=== PATIENT | female | born 1940 | race Caucasian/White ===

== ENCOUNTER 2018-09-25 15:17 | Outpatient (REF) | payer MEDICARE, SELFPAY ==
[2018-09-25 20:54] LABS: Abs Immature Grans 0.01 k/cumm (0.0-0.09); Absolute Basophil Count 0.03 k/cumm (0.0-0.2); Absolute Eosinophil Count 0.13 k/cumm (0.0-0.7); Absolute Lymphocyte Count 2.57 k/cumm (1.2-3.4); Absolute Monocyte Count 0.68 k/cumm (0.11-0.7); Absolute Neutrophil Count 3.54 k/cumm (1.2-6.7); Basophils % 0.4; Eosinophils % 1.9; HCT 43.7 % (36.0-46.0); Immature Grans % 0.1; Lymphocytes % 36.9; Mean Corp. HGB Concentration 34.3 g/dL (32.0-36.0); Mean Corpuscular Hemoglobin 33.6 pg (27.0-33.0); Mean Corpuscular Volume 97.8 fL (80-95); Mean Platelet Volume 13.1 fL (8.0-11.0); Monocytes % 9.8; Neutrophils % 50.9; Platelet Count 177 x1000/uL (130-400); RBC 4.47 m/cumm (4.00-5.20); RBC Distribution Width 12.9 % (11.7-14.6); White Blood Cell Count 6.96 k/cumm (4.4-10.8)
[2018-09-25 21:11] LABS: Iron 135 ug/dL (50-175); Total Iron Binding Capacity 249 ug/dL (250-450); Transferrin Sat 54 % (15-50)
[2018-09-25 21:22] LABS: BUN 14 mg/dL (7-18); CREATININE 0.84 mg/dL (0.55-1.02); Calcium 9.7 mg/dL (8.5-10.1); Calculated LDL 118 mg/dL; Chloride 105 mmol/L (98-107); Cholesterol 198 mg/dL (50-200); Ferritin 332 ng/mL (8-388); Glucose 96 mg/dL (70-100); HDL Cholesterol 40 mg/dL (40-60); Magnesium 2.2 mg/dL (1.8-2.4); Potassium 4.3 mmol/L (3.5-5.1); Sodium 141 mmol/L (136-145); TSH (W/Ref FT4) 1.07 uIU/mL (0.36-3.74); Triglyceride 201 mg/dL (30-150)
[2018-09-25 21:35] LABS: Hemoglobin A1C 5.4 % (4.5-6.2)
== END 2018-09-25 15:37 ==
LOC: NCHCN 15:17
PROVIDERS: PCP Internal Medicine; Visit Provider Nurse Practitioner Family
DX: I10 Essential (primary) hypertension (principal); G47.62 Sleep related leg cramps; M54.5 Low back pain; G89.29 Other chronic pain; E66.9 Obesity, unspecified; K21.9 Gastro-esophageal reflux disease without esophagitis; K30 Functional dyspepsia
CPT/HCPCS: 80048; 80061; 83721; 82728; 83036; 83540; 83550; 83735; 84443; 85025

== ENCOUNTER 2020-04-17 15:19 | Outpatient (REF) | payer MEDICARE, SELFPAY ==
[2020-04-17 13:50] LABS: Calculated LDL 100 mg/dL (<100); Cholesterol 160 mg/dL (<200); HDL Cholesterol 40 mg/dL (40-60); Triglyceride 103 mg/dL (<150)
== END 2020-04-17 15:20 | disposition home or self-care (01) ==
LOC: NCHCN 15:19
PROVIDERS: PCP Internal Medicine; Visit Provider Nurse Practitioner Family
DX: E66.9 Obesity, unspecified (principal)
CPT/HCPCS: 80061

== ENCOUNTER 2021-04-09 13:46 | Outpatient (REF) | payer MEDICARE, SELFPAY ==
[2021-04-09 22:16] LABS: Anion Gap 8.7 mmol/L (3-11); BUN 10 mg/dL (7-18); CO2 26.3 mmol/L (21.0-32.0); CREATININE 0.8 mg/dL (0.55-1.02); Calcium 9.1 mg/dL (8.5-10.1); Chloride 105 mmol/L (98-107); Glucose 91 mg/dL (74-106); Magnesium 2.1 mg/dL (1.8-2.4); Potassium 3.7 mmol/L (3.5-5.1); Sodium 140 mmol/L (136-145); Vitamin B12 581 pg/mL (193-986)
== END 2021-04-09 13:47 | disposition home or self-care (01) ==
LOC: NCHCN 13:46
PROVIDERS: PCP Internal Medicine; Visit Provider Nurse Practitioner Family
DX: I10 Essential (primary) hypertension (principal); K30 Functional dyspepsia; N39.46 Mixed incontinence; M54.59 Other low back pain; G89.29 Other chronic pain; E66.9 Obesity, unspecified
CPT/HCPCS: 80048; 82607; 83735

== ENCOUNTER 2021-09-26 11:50 | Outpatient (REF) | payer MEDICARE, SELFPAY ==
--- NOTE | 2021-09-26 10:45 | PAPNONF_PTH ---
PATIENT: Margarita Palomares LOC: [facility] U#:[id number] AGE/SX: 81/F ROOM: RE09/26/[address]: Jason Dunlap MD : 1940 BED: DIS: 09/26/2021 SPEC #: [id number] RECD: 09/26/21 18:18 STATUS: CEDRIC REQ #: [id number] TRI: 09/26/21 10:[address]: Jason Dunlap DEPT: [facility] Cytology RECD BY: Denia Mallory ENTERED: 09/26/21 18:19 SP TYPE: PAPNONF ANTONIO DR: Herber Womack Tissues: 1 - BODY FLUID CYTO-FINE NEEDLE [facility] Procedures: BODY FLUID CYTO-FINE [facility]LE [facility] Comments: [id number]
--- OUTSIDE RECORDS SUMMARY | 2021-09-26 11:56 | XMS_ITS | Clinical Summary ---
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
--- OUTSIDE RECORDS SUMMARY | 2021-09-26 11:57 | XMS_ITS | Encounter Summary ---
:1940 Author Organization [facility] Address [address] [place] [address] Care Team Providers Name Role Phone Unavailable Primary Care Provider Unavailable Encounter Details Date Type Department Care Team Description 09/20/2006 - Hospital Encounter [facility] Thelma Evans MD 09/24/2006 Emergency Department [address] [place] [address] Pavilion, [place] [id number] (Wo rk) Social History Tobacco Use Types Packs/Day Years Used Date Never Assessed Sex Assigned at Date Recorded Not on file documented as of this encounter Discharge Disposition Disposition Code Departure Means Destination Home or Self Care documented in this encounter Plan of Treatment Not on filedocumented as of this encounter Procedures Procedure Name Priority Date/Time Associated Comments Diagnosis COMPLETE BLOOD COUNT Routine 09/23/2006 7:45 Resu lts for this EDT procedure are i n the results section. BUN Routine 09/23/2006 7:45 Results for this EDT procedure are i n the results section. CREATININE Routine 09/23/2006 7:45 Results for this EDT procedure are i n the results section. ELECTROLYTES Routine 09/23/2006 7:45 Results for this EDT procedure are i n the results section. COMPLETE BLOOD COUNT Routine 09/22/2006 8:40 Resu lts for this EDT procedure are i n the results section. BUN Routine 09/22/2006 8:40 Results for this EDT procedure are i n the results section. CREATININE Routine 09/22/2006 8:40 Results for this EDT procedure are i n the results section. ELECTROLYTES Routine 09/22/2006 8:40 Results for this EDT procedure are i n the results section. COMPLETE BLOOD COUNT Routine 09/21/2006 7:20 Resu lts for this EDT procedure are i n the results section. BUN Routine 09/21/2006 7:20 Results for this EDT procedure are i n the results section. CREATININE Routine 09/21/2006 7:20 Results for this EDT procedure are i n the results section. ELECTROLYTES Routine 09/21/2006 7:20 Results for this EDT procedure are i n the results section. CT ABDOMEN, PELVIS W 09/20/2006 14:42 Res ults for this CONTRAST EDT procedure are i n the results section. COMPLETE BLOOD COUNT Routine 09/20/2006 13:55 Res ults for this AND DIFFERENTIAL EDT procedure a re in the results section. BUN Routine 09/20/2006 12:00 Results for this EDT procedure are i n the results section. LIPASE Routine 09/20/2006 12:00 Results for this EDT procedure are i n the results section. GLUCOSE, SERUM Routine 09/20/2006 12:00 Results f or this EDT procedure are i n the results section. CREATININE Routine 09/20/2006 12:00 Results for this EDT procedure are i n the results section. HEPATIC FUNCTION Routine 09/20/2006 12:00 Results for this PANEL (ALB,ALK EDT procedure are in PHOS,ALT,AST,DBIL,TOT the re sults NAHOMI,TOT PROT) section. ELECTROLYTES Routine 09/20/2006 12:00 Results for this EDT procedure are i n the results section. HOLD PURPLE TOP Routine 09/20/2006 11:00 Results for this EDT procedure are i n the results section. HOLD GREEN TOP Routine 09/20/2006 11:00 Results f or this EDT procedure are i n the results section. HOLD BLUE TOP Routine 09/20/2006 11:00 Results fo r this EDT procedure are i n the results section. BUN Routine 09/20/2006 11:00 Results for this EDT procedure are i n the results section. LIPASE Routine 09/20/2006 11:00 Results for this EDT procedure are i n the results section. GLUCOSE, SERUM Routine 09/20/2006 11:00 Results f or this EDT procedure are i n the results section. CREATININE Routine 09/20/2006 11:00 Results for this EDT procedure are i n the results section. HEPATIC FUNCTION Routine 09/20/2006 11:00 Results for this PANEL (ALB,ALK EDT procedure are in PHOS,ALT,AST,DBIL,TOT the re sults NAHOMI,TOT PROT) section. ELECTROLYTES Routine 09/20/2006 11:00 Results for this EDT procedure are i n the results section. documented in this encounter Results (ABNORMAL) ELECTROLYTES (09/23/2006 7:45 EDT) Pathologist Sig nature Sodium 135 (L) 136 - 145 mEq/L [facility] Potassium 3.4 (L) 3.5 - 5.0 mEq/L [facility] Chloride 108 96 - 110 mEq/L [facility] CO2 23 (L) 24 - 32 mEq/L [facility] Specimen Performing Organization Address [facility] Phon e Number [facility] [address] [place] [address] SERVICES [facility] [address] [place] [address] (ABNORMAL) CREATININE (09/23/2006 7:45 EDT) Pathologist Sig nature Creatinine 0.66 (L) 0.7 - 1.5 mg/dl [facility] GFR, Calculated >60 ml/min/1.73m2 [facility] Specimen Performing Organization Address [facility] Phon e Number [facility] [address] [place] [address] SERVICES [facility] [address] [place] [address] (ABNORMAL) HEMAGRAM (09/23/2006 7:45 EDT) Pathologist Sig nature WBC 8.71 4.0 - 12.4 K/cmm [facility] RBC 3.29 (L) 3.86 - 5.04 M/cmm [facility] Hemoglobin 11.4 (L) 11.6 - 15.2 gm/dl [facility] HCT 32.3 (L) 34.9 - 44.4 % [facility] MCV 98 81 - 98 fl [facility] MCH 34.8 (H) 26.7 - 33.3 pg [facility] MCHC 35.3 32.1 - 35.9 gm/dl [facility] PLT 193 141 - 320 K/cmm [facility] RDW-CV 13.0 11.7 - 14.6 % [facility] Specimen Performing Organization Address [facility]/ZIP Code Phon e Number [facility] [address] [place] [address] SERVICES [facility] [address] [place] [address] (ABNORMAL) BUN (09/23/2006 7:45 EDT) Pathologist Sig nature BUN 3 (L) 10 - 26 mg/dl [facility] Specimen Performing Organization Address [facility]/ZIP Code Phon e Number [facility] [address] [place] [address] SERVICES [facility] [address] [place] [address] (ABNORMAL) ELECTROLYTES (09/22/2006 8:40 EDT) Pathologist Sig nature Sodium 138 136 - 145 mEq/L [facility] Potassium 3.1 (L) 3.5 - 5.0 mEq/L [facility] Chloride 111 (H) 96 - 110 mEq/L [facility] CO2 24 24 - 32 mEq/L [facility] Specimen Performing Organization Address [facility] Phon e Number [facility] [address] [place] [address] SERVICES [facility] [address] [place] [address] (ABNORMAL) CREATININE (09/22/2006 8:40 EDT) Pathologist Sig nature Creatinine 0.60 (L) 0.7 - 1.5 mg/dl [facility] GFR, Calculated >60 ml/min/1.73m2 [facility] Specimen Performing Organization Address [facility]/ZIP Code Phon e Number [facility] [address] [place] [address] SERVICES [facility] [address] [place] [address] (ABNORMAL) HEMAGRAM (09/22/2006 8:40 EDT) Pathologist Sig nature WBC 18.16 (H) 4.0 - 12.4 K/cmm [facility] RBC 4.06 3.86 - 5.04 M/cmm [facility] Hemoglobin 11.9 11.6 - 15.2 gm/dl [facility] HCT 34.8 (L) 34.9 - 44.4 % [facility] MCV 86 81 - 98 fl [facility] MCH 29.4 26.7 - 33.3 pg [facility] MCHC 34.3 32.1 - 35.9 gm/dl [facility] PLT 210 141 - 320 K/cmm [facility] RDW-CV 13.5 11.7 - 14.6 % [facility] Specimen Performing Organization Address [facility]/ZIP Code Phon e Number [facility] [address] [place] [address] SERVICES [facility] [address] [place] [address] (ABNORMAL) BUN (09/22/2006 8:40 EDT) Pathologist Sig nature BUN 6 (L) 10 - 26 mg/dl [facility] Specimen Performing Organization Address [facility]/ZIP Code Phon e Number [facility] [address] [place] [address] SERVICES [facility] [address] [place] [address] (ABNORMAL) ELECTROLYTES (09/21/2006 7:20 EDT) Pathologist Sig nature Sodium 134 (L) 136 - 145 mEq/L [facility] Potassium 3.4 (L) 3.5 - 5.0 mEq/L [facility] Chloride 106 96 - 110 mEq/L [facility] CO2 23 (L) 24 - 32 mEq/L [facility] Specimen Performing Organization Address [facility]/ZIP Code Phon e Number [facility] [address] [place] [address] SERVICES [facility] [address] [place] [address] CREATININE (09/21/2006 7:20 EDT) Pathologist Sig nature Creatinine 0.70 0.7 - 1.5 mg/dl [facility] GFR, Calculated >60 ml/min/1.73m2 [facility] Specimen Performing Organization Address [facility]/ZIP Code Phon e Number [facility] [address] [place] [address] SERVICES [facility] [address] [place] [address] (ABNORMAL) HEMAGRAM (09/21/2006 7:20 EDT) Pathologist Sig nature WBC 15.31 (H) 4.0 - 12.4 K/cmm [facility] RBC 3.54 (L) 3.86 - 5.04 M/cmm [facility] Hemoglobin 12.0 11.6 - 15.2 gm/dl [facility] HCT 35.0 34.9 - 44.4 % [facility] MCV 99 (H) 81 - 98 fl [facility] MCH 34.0 (H) 26.7 - 33.3 pg [facility] MCHC 34.4 32.1 - 35.9 gm/dl [facility] PLT 179 141 - 320 K/cmm [facility] RDW-CV 13.4 11.7 - 14.6 % [facility] Specimen Performing Organization Address [facility] Phon e Number [facility] [address] [place] [address] SERVICES [facility] [address] [place] [address] BUN (09/21/2006 7:20 EDT) Pathologist Sig nature BUN 10 10 - 26 mg/dl [facility] Specimen Performing Organization Address [facility] Phon e Number [facility] [address] [place] [address] SERVICES [facility] [address] [place] [address] CT ABDOMEN, PELVIS W CONTRAST (09/20/2006 14:42 EDT) Anatomical Region Laterality Modality Other Specimen Narrative [facility] - 08/31/2008 13 :59 EDT LLQ pain, fever, w/ vomiting, dirrehea. Tender. ? Diverticulitis CT ABDOMEN, PELVIS: ??September 20, 2006, 2:4 2:00 PM Signs and Symptoms: ??LLQ pain, fever, w / vomiting, diarrhea. ??Tender. ? Diverticulitis Comparison: None Technique: Helical images were obtained from the do mes of the diaphragm to the iliac crests. Technique Pelvis: Immediately after the above preparation, axial images were obtained from the iliac crests to the ischial tub erosities. During the exam, ??intravenous administr ation of 100 cc of 370 mg% nonionic contrast at a rate of 2 cc/seco nd was administered. Prior to scanning, oral and rectal contrast was a dministered. Findings: There is extensive diverticulitis involv ing the distal descending colon with marked pericolic fat strandin g and extraluminal gas tracking from the posterior inflamed div erticula. There is no significant fluid collection associated with the phlegmon. There is no bowel dilatation. No pneumoperitoneum is noted. A small amount of ascites is also noted. ??Diverticulosis of the sigmoid is also noted. The appendix is normal. There is no smal l bowel obstruction. There is a 3 cm hypodense lesion in the posterior segment of the right hepatic lobe. Delayed images were obtained 1 minute later of the liver and demonstrate probable nodul ar peripheral enhancement. However, most of the lesion is not fille d in on the delayed images. There is no gas in this mass. Also prese nt are multiple hypodense lesions involving the spleen. The larges t measures 1.3 AP by 1.4 transverse (image 42) and is located in the medial aspect of the spleen. The pancreas, adrenal glands and left ki dney are unremarkable. A few subcentimeter hypodense lesions are seen in the right renal cortex, too small to characterize but likely cys ts. The aorta and IVC are unremarkable. Ther e is no pelvic mass. The ovaries are present and symmetrical. There is a left inguinal hernia containi ng fat. Degenerative disease of the lumbar spine is noted. Conclusion: Diverticulitis with associated phlegmon and microperforation. Indeterminate hepatic and splenic lesion s. The hepatic lesion is suggestive for a hemangioma. Dedicated h epatic CT or MRI may prove helpful to further characterize. Procedure Note Sadie Petersen MD - 08/31/2008 LLQ pain, fever, w/ vomiting, dirrehea. Tender. ? Diverticulitis CT ABDOMEN, PELVIS: September 20, 2006, 2:42: 00 PM Signs and Symptoms: LLQ pain, fever, w/ vomiting, diarrhea. Tender. ? Diverticulitis Comparison: None Technique: Helical images were obtained from the do mes of the diaphragm to the iliac crests. Technique Pelvis: Immediately after the above preparation, axial images were obtained from the iliac crests to the ischial tub erosities. During the exam, intravenous administrat ion of 100 cc of 370 mg% nonionic contrast at a rate of 2 cc/seco nd was administered. Prior to scanning, oral and rectal contrast was a dministered. Findings: There is extensive diverticulitis involv ing the distal descending colon with marked pericolic fat strandin g and extraluminal gas tracking from the posterior inflamed div erticula. There is no significant fluid collection associated with the phlegmon. There is no bowel dilatation. No pneumoperitoneum is noted. A small amount of ascites is also noted. Diverticulosis of the sigmoid is also noted. The appendix is normal. There is no smal l bowel obstruction. There is a 3 cm hypodense lesion in the posterior segment of the right hepatic lobe. Delayed images were obtained 1 minute later of the liver and demonstrate probable nodul ar peripheral enhancement. However, most of the lesion is not fille d in on the delayed images. There is no gas in this mass. Also prese nt are multiple hypodense lesions involving the spleen. The larges t measures 1.3 AP by 1.4 transverse (image 42) and is located in the medial aspect of the spleen. The pancreas, adrenal glands and left ki dney are unremarkable. A few subcentimeter hypodense lesions are seen in the right renal cortex, too small to characterize but likely cys ts. The aorta and IVC are unremarkable. Ther e is no pelvic mass. The ovaries are present and symmetrical. There is a left inguinal hernia containi ng fat. Degenerative disease of the lumbar spine is noted. Conclusion: Diverticulitis with associated phlegmon and microperforation. Indeterminate hepatic and splenic lesion s. The hepatic lesion is suggestive for a hemangioma. Dedicated h epatic CT or MRI may prove helpful to further characterize. Performing Organization Address City/State/ZIP Code Phon e Number [facility] [address] [facility] [address] [facility] [address] [place], [place] [address] (ABNORMAL) HEMAGRAM AND DIFFERENTIAL (09/20/2006 13:55 EDT) Pathologist Sig nature WBC 15.13 (H) 4.0 - 12.4 K/cmm [facility] RBC 4.08 3.86 - 5.04 M/cmm [facility] Hemoglobin 13.9 11.6 - 15.2 gm/dl [facility] HCT 39.8 34.9 - 44.4 % [facility] MCV 98 81 - 98 fl [facility] MCH 34.0 (H) 26.7 - 33.3 pg [facility] MCHC 34.8 32.1 - 35.9 gm/dl [facility] PLT 182 141 - 320 K/cmm [facility] RDW-CV 12.6 11.7 - 14.6 % [facility] Neutrophils 92.0 (H) 45.5 - 79.7 % [facility] Lymphocytes 5.0 (L) 15.0 - 46.8 % [facility] Monocytes 3.0 1.8 - 12.0 % [facility] ABS Neutrophils 13.92 (H) 2.20 - 8.85 K/cmm [facility] ABS Lymphs 0.76 (L) 1.09 - 3.30 K/cmm [facility] ABS Monocytes 0.45 0.1 - 0.8 K/cmm [facility] RBC Morphology Normal [facility] Type of Diff: Manual [facility] Specimen Performing Organization Address [facility] Phon e Number [facility] [address] [place] [address] SERVICES [facility] [address] [place] [address] (ABNORMAL) GLUCOSE, SERUM (09/20/2006 12:00 EDT) Pathologist Sig nature Glucose, Serum 111 (H) 70 - 100 mg/dl [facility] Specimen Performing Organization Address [facility] Phon e Number [facility] [address] [place] [address] SERVICES [facility] [address] [place] [address] ELECTROLYTES (09/20/2006 12:00 EDT) Pathologist Sig nature Sodium 138 136 - 145 mEq/L [facility] Potassium 4.0 3.5 - 5.0 mEq/L [facility] Chloride 102 96 - 110 mEq/L [facility] CO2 27 24 - 32 mEq/L [facility] Specimen Performing Organization Address [facility] Phon e Number [facility] [address] [place] [address] SERVICES [facility] [address] [place] [address] (ABNORMAL) LIVER FUNCTION TESTS (09/20/2006 12:00 EDT) Pathologist Sig nature Albumin 3.8 3.4 - 4.9 g/dl [facility] Total Protein 7.4 6.5 - 8.3 g/dl [facility] Total Alkaline 97 38 - 126 U/L [facility] Phosphatase ALT 34 9 - 52 U/L [facility] AST 27 15 - 46 U/L [facility] Unconjugated Bilirubin 1.6 (H) 0.1 - 1.1 mg/dl [facility] Conjugated Bilirubin 0.0 0.0 - 0.3 mg/dl [facility] B Bilirubin, Total 1.2 0.2 - 1.3 mg/dl [facility] Specimen Performing Organization Address [facility]/ZIP Code Phon e Number [facility] [address] [place] [address] SERVICES [facility] [address] [place] [address] LIPASE (09/20/2006 12:00 EDT) Pathologist Sig nature Lipase 37 0 - 250 U/L [facility] Specimen Performing Organization Address City/[facility]/ZIP Code Phon e Number [facility] [address] [place] [address] SERVICES [facility] [address] [place] [address] CREATININE (09/20/2006 12:00 EDT) Pathologist Sig nature Creatinine 0.80 0.7 - 1.5 mg/dl [facility] GFR, Calculated >60 ml/min/1.73m2 [facility] Specimen Performing Organization Address [facility]/ZIP Code Phon e Number [facility] [address] [place] [address] SERVICES [facility] [address] [place] [address] BUN (09/20/2006 12:00 EDT) Pathologist Sig nature BUN 12 10 - 26 mg/dl [facility] Specimen Performing Organization Address [facility]/ZIP Code Phon e Number [facility] [address] [place] [address] SERVICES [facility] [address] [place] [address] GLUCOSE, SERUM (09/20/2006 11:00 EDT) Glucose, Serum Marked hemolysis 70 - 100 mg/dl [facility] Specimen unsuitable for analysis. Repeat Requested Specimen Performing Organization Address City/[facility]/ZIP Code Phon e Number [facility] [address] [place] [address] SERVICES [facility] [address] [place] [address] ELECTROLYTES (09/20/2006 11:00 EDT) Pathologist Sig nature Sodium Marked hemolysis 136 - 145 mEq/L [facility] Specimen unsuitable for analysis. Repeat Requested Potassium Marked hemolysis 3.5 - 5.0 mEq/L [facility] Specimen unsuitable for analysis. Repeat Requested Chloride Marked hemolysis 96 - 110 mEq/L [facility] Specimen unsuitable for analysis. Repeat Requested CO2 Marked hemolysis 24 - 32 mEq/L [facility] Specimen unsuitable for analysis. Repeat Requested Specimen Performing Organization Address [facility] Phon e Number [facility] [address] [place] [address] SERVICES [facility] [address] [place] [address] LIVER FUNCTION TESTS (09/20/2006 11:00 EDT) Albumin Marked hemolysis 3.4 - 4.9 [facility] Specimen unsuitable for analysis. g/dl LAB Repeat Requested Total Protein Marked hemolysis 6.5 - 8.3 [facility] Specimen unsuitable for analysis. g/dl LAB Repeat Requested Total Alkaline Marked hemolysis 38 - 126 U/L [facility] Phosphatase Specimen unsuitable for analysis. LAB Repeat Requested ALT Marked hemolysis 9 - 52 U/L [facility] Specimen unsuitable for analysis. LAB Repeat Requested AST Marked hemolysis 15 - 46 U/L [facility] Specimen unsuitable for analysis. LAB Repeat Requested Unconjugated Marked hemolysis 0.1 - 1.1 [facility] Bilirubin Specimen unsuitable for analysis. mg/dl LAB Repeat Requested Conjugated Bilirubin Marked hemolysis 0.0 - 0.3 [facility] Specimen unsuitable for analysis. mg/dl LAB Repeat Requested Bilirubin, Total Marked hemolysis 0.2 - 1.3 [facility] Specimen unsuitable for analysis. mg/dl LAB Repeat Requested Delta Bilirubin Marked hemolysis mg/dl [facility] Specimen unsuitable for analysis. LAB Repeat Requested Specimen Performing Organization Address City/[facility]/ZIP Code Phon e Number [facility] [address] [place] [address] SERVICES [facility] [address] [place] [address] LIPASE (09/20/2006 11:00 EDT) Pathologist Sig nature Lipase Marked hemolysis 0 - 250 U/L [facility] Specimen unsuitable for analysis. Repeat Requested Specimen Performing Organization Address City/State/ZIP Code Phon e Number [facility] [address] [place] [address] SERVICES [facility] [address] [place] [address] HOLD PURPLE TOP (09/20/2006 11:00 EDT) Hold Purple Top EDTA for hematology will be discarded after 48 hours, differential not available after 12 [facility] hours. Specimen Performing Organization Address City/State/ZIP Code Phon e Number [facility] [address] [place] [address] SERVICES [facility] [address] [place] [address] HOLD GREEN TOP (09/20/2006 11:00 EDT) Pathologist Sig nature Hold Green Top Hold for further [facility] testing. Specimen will be held for 30 days. Specimen Performing Organization Address City/State/ZIP Code Phon e Number [facility] [address] [place] [address] SERVICES [facility] [address] [place] [address] HOLD BLUE TOP (09/20/2006 11:00 EDT) Pathologist Sig nature Hold Blue Top Sample for [facility] coagulation will be discarded after 4 hours Specimen Performing Organization Address City/[facility]/ZIP Code Phon e Number [facility] [address] [place] [address] SERVICES [facility] [address] [place] [address] CREATININE (09/20/2006 11:00 EDT) Creatinine Marked hemolysis 0.7 - 1.5 [facility] Specimen unsuitable for analysis. mg/dl LAB Repeat Requested GFR, Calculated Marked hemolysis ml/min/1.73m2 [facility] Specimen unsuitable for analysis. LAB Repeat Requested Specimen Performing Organization Address City/State/ZIP Code Phon e Number [facility] [address] [place] [address] SERVICES [facility] [address] [place] [address] BUN (09/20/2006 11:00 EDT) Pathologist Sig nature BUN Marked hemolysis 10 - 26 mg/dl [facility] Specimen unsuitable for analysis. Repeat Requested Specimen Performing Organization Address City/State/ZIP Code Phon e Number [facility] [address] [place] [address] SERVICES [facility] [address] [place] [address] documented in this encounter Visit Diagnoses Not on filedocumented in this encounter
--- OUTSIDE RECORDS SUMMARY | 2021-09-26 11:57 | XMS_ITS | Encounter Summary ---
:1940 Author Organization [facility] Address [address] [place] [address] Care Team Providers Name Role Phone Unavailable Primary Care Provider Unavailable Encounter Details Date Type Department Care Team Description 09/20/2006 Office Visit [facility] - Bernabe Uribe MD [employer] [address] [address] [address], [place] [address] (Wo rk) Social History Tobacco Use Types Packs/Day Years Used Date Never Assessed Sex Assigned at Date Recorded Not on file documented as of this encounter Progress Notes Bernabe Uribe MD - 04/23/2009 0220 EST Department - Physician Summary Registration Date/Time: 09/20/2006 9:24 Arrived- By private vehicle. Historian- patient. Attending Note: I personally interviewed the patient and examined the patient. HISTORY OF PRESENT ILLNESS Chief complaint- ABDOMINAL PAIN. This started yesterday and is still present. It is described as pain, sharp, cramping and burning and it is described as located in the left lower quadrant. At its maximum, severity described as 9 / 10. When seen in the E.D., severity described as 9 / 10. Modifying factors- worsened by movement. Not relieved by anything. She has had nausea, loss of appetite, vomiting and diarrhea. Patient has not had similar symptoms previously. Not recently seen/assessed. Additional history - She has had fever, nausea, vomiting, abdominal pain and diarrhea. No chills, sweats, fatigue, eye irritation or decreased vision. No ear pain or drainage, nasal congestion or discharge or sore throat. No chest pain, palpitations, difficulty breathing, cough or black stools. No bloody stools, urinary problems, neck pain, back pain or skin rash. No headache, head injury, alterationin mental status, seizure or blackouts. No numbness, weakness, depression or easy bruising. REVIEW OF SYSTEMS The patient has had fever, nausea, vomiting, abdominal pain and diarrhea. No chills, sweats, fatigue, eye irritation or decreased vision. No ear pain or drainage, nasal congestion or discharge or sore throat. No chest pain, palpitations, difficulty breathing, cough or constipation. No black stools, blo reagan stools, urinary problems, neck pain or back pain. No skin rash, headache, head injury, alteration in mental status or dizziness. No fainting episodes, seizure, numbness, weakness or depression. No easy bruising. PAST HISTORY Negative. Medications: None. Allergies: No known drug allergies. SOCIAL HISTORY Alcohol use. Nonsmoker. PHYSICAL EXAM Appearance: Alert. Appears to be in pain. Eyes: Pupils equal, round and reactive to light. Eyes normal inspection. ENT: Ears normal. Nose normal. Pharynx normal. Neck: Normal inspection. Neck supple. CVS: Normal heart rate and rhythm. Heart sounds normal. Pulses normal. Respiratory: No respiratory distress. Breath sounds normal. Chest nontender. Abdomen: Moderate tenderness in the left lower quadrant. Guarding present. No abdominal distention or mass present. Back: Normal inspection. Skin: Normal skin color. Skin warm. No rash. Extremities: Extremities exhibit normal ROM. No lower extremity edema. Neuro: Oriented X 3. No motor deficit. No sensory deficit. Reflexes normal. LABS, X-RAYS, AND EKG Abdominal CT: There is evidence of diverticulitis with focal abscess. The study was independently viewed by me, interpreted by the radiologist and contemporaneously by me and discussed with the radiologist. Pelvic CT: diverticulitis. Pelvic CT performed with IV and oral contrast. The study was independently viewed by me, interpreted by the radiologist and contemporaneously by me and discussed with the radiologist. Bedside Tests: Urine dipstick negative. CBC: WBC 15.13. HCT 39.8. Platelets 182. Chemistries: Na- 138. K- 4.0. Cl- 102. HCO3- 27. Glucose - 111. BUN- 12. Cr- 0.8. Pulse Oximetry: O2 saturation- 95 % room air. PROGRESS AND PROCEDURES E.D. Course: To begin oral contrast Discussed case with the hospitalist who requested that a general surgery consult be obtained.. Acetaminophen 975 mg PO. Cipro 400 mg IVPB. Flagyl 500mg IVPB. Morphine 2mg IVP. Phenergan 25 mg IVP. I consider acute appendicitis, small bowel obstruction, bowel ischemia, biliary colic, hepatitis andpancreatitis unlikely as a cause of abdominal pain in this patient. Above considerations are based on history, physical exam, past history, social history, reassessment, laboratory data, X-Ray data and consultation. Differential diagnosis was discussed with patient and patient's spouse. Disposition: Admitted to Medicine. Condition: stable. CLINICAL IMPRESSION Diverticulitis. (Electronically signed by Bernabe Uribe MD 09/20/2006 16:30) Department - Nursing Summary Registration Date/Time: 09/20/2006 9:24 TRIAGE Initial Assessment Triage time 09:25 Sep 20 2006. --924 Korin Clay R.N. Acuity: LEVEL 3. Temp: 37.8 C (tympanic). Alert. --927 Korin Clay R.N. BP: 120 / 85. HR: 64. RR: 16. --931 Korin Clay R.N.. Medications None. --927 Korin Clay R.N.. Allergies No known drug allergies. --927 Korin Clay R.N.. History Chief Complaint: ABDOMINAL PAIN. This started yesterday. Pain level now: 910. The patient has had vomiting (today). The vomiting hasoccurred several times. (Denies dysuria or frequency). PAST HX: Negative. SOCIAL HX: Occasional alcohol use. Nonsmoker. No report of abuse. Arrived by private vehicle and walking and accompanied by spouse. Historian: patient. --927 Korin Clay R.N. (Pain is in suprapubic area.). --931 Korin Clay R.N.. PHYSICAL ASSESSMENT Alert. Appears in no acute distress. Oriented X 3. Respirations not labored. Breath sounds within normal limits. Emesis noted (Pt vomited small amount of emesis on arrival to room. Emesis was clear with some yellow contents.). Abdominal tenderness in the lower abdomen (C/O abd. pain across lower abd. Also has some back pain on left). CVA tenderness (Pt stated she had diarrhea yesterday and had normalBM's before that.). No blood in the stool. Capillary refill less than 2 seconds. Mucous membranes are pink. Skin is warm and dry. --945 Lizeth Gomes R.N.. NURSING PROGRESS NOTES Two patient identifiers checked. Patient gowned. Head of bed elevated. Call light placed in reach. Side rails up x 2. Bed placed in lowest position. Brakes of bed on. --945 Lizeth Gomes R.N. Urine collected. Urine dipstick, clean catch sample: ketones weakly positive; negative for blood, leukocyte esterase, nitrite, glucose, protein and bilirubin (SG 1.020 pH 6.5 KET 1+). --1005 Manoj De PazN. MORPHINE 2mg and PHENERGAN 25mg diluted with 10 mL slow IVP over 2 minutes. IV patency established. IV site checked:no pain, redness, or swelling. IV flushed thoroughly pre- and post-medication administration. Sedative drug warning given to patient and family. . --1113 Lizeth Gomes R.N. (Pt is c/o nausea. ). --1113 Lizeth Gomes R.N. BP: 109 /64. HR: 75. RR: 20. O2 saturation: 98 % room air. --1129 Lizeth Gomes R.N. (Pt drinking contrast @ this time.). --1130 Lizeth Gomes R.N. Blood samples drawn from the right antecubital space with 19g butterfly by [employer] per protocol and sent to lab: [place]; total amount drawn 5 mL. (redraw sst). --1202 Delbert Lyman, BP: 116 / 71. HR: 74. RR: 20. Temp: 102.2 F (oral). O2 saturation: 95 % room air. (Pt resting on stretcher. Pt states the pain has improved since coming in.Will contiue to monitor.). Patient reports current pain level as 0/10. Overall patient status- the patient states feels better. --1249 Lizeth Gomes R.N. (Pt still drinking contrast for CT scan.). --1249 Lizeth Gomes R.N. (Care assumed. Report received.). --1302 Minnie Mahoney R.N. (Pt. with mod. emesis of OC. Pt. had consumed about 3/4 of first 500cc bottle of OC before emesis. Dr. uribe informed.). --1308 Minnie Mahoney R.N. (Per Dr. Uribe - OC on hold at this time.). --1309 Minnie Mahoney R.N. ACETAMINOPHEN 975 mg PO. . --1327 Minnie Mahoney R.N. (Dr. Uribe in to re-evaluate pt.). --1328 Minnie Mahoney R.N. (Per Dr. Uribe - CBC clotted, redraw needed.). --1358 Minnie Mahoney R.N. Blood samples drawn from the right hand with syringe 21g by nurse per protocol and sent to lab: purple top; total amount drawn 3 mL. --1358 Minnie Mahoney R.N. (CT completed.). --1444 Minnie Mahoney R.N. BP: 114 / 69. HR: 86. RR: 16. Temp: 39.1 C (oral). --1458 Minnie Mahoney R.N. Patient reports current pain level as 1/10. --1458 Minnie Mahoney R.N. FLAGYL 500mg IVPB in 100 mL (pre-mix) over 1 hour, via IV pump. IV patency established. IV site checked: no pain, redness, or swelling. IV flushed thoroughly pre- and post-medication administration. Allergic reaction warning given to patient. . --1515 Minnie Mahoney R.N. (Med students with SURGERY at bedside to evaluate pt.). --1553 Minnie Mahoney R.N. (Pt. to be admitted - awaiting admit team.). --162 Minnie Mahoney R.N. (MEDICINEresidents at bedside to evaluate pt. for admission.). --163 Minnie Mahoney R.N. CIPRO 400 mg IVPB (pre-mix) over 1 hour, via IV pump. IV patency established. IV site checked: no pain, redness, or swelling. IV flushed thoroughly pre- and post-medication administration. . --163 Minnie Mahoney R.N. BP: 104 / 62. HR: 71. RR: 16. Temp: 38.7 C (oral). --174 Minnie Mahoney R.N.. IV / I&O Flowsheet IV access: left antecubital space. IV started in ED with 18g angiocath using aseptic technique, withgood blood return; one attempt. Saline lock placed and flushed with 3 mL normal saline. --111 Lizeth Gomes R.N. Blood samples drawn from the left antecubital space peripheral IV site with syringe by nurse and sent to lab: green, purple, blue and tiger top; total amount drawn 12 mL. --1112 Lizeth Gomes R.N. late entry - 1400. IV fluids discontinued. IV bag #1. INTAKE: IV 1000 mL. --1445 Minnie Mahoney R.N. late entry - 1400. IV fluids started. IV bag #2 of 1000 mL NS; rate = 100 mL/hr. --1445 Minnie Mahoney R.N. 1620. INTAKE: Flagyl infused Total 100mL. --1638 Minnie Mahoney R.N. INTAKE: Cipro infused - 200ml. --174 Minnie Mahoney R.N.. DISPOSITION / DISCHARGE Report was given (JAE Balderas). (Pt. to be admitted to B4.). --175 Minnie Mahoney R.N. Admitted (B4). Transported via stretcher by tech with IV. --1800 Minnie Mahoney R.N.. Velia Pemberton R.N., Michael Francesca Berriman, R.N. Locked/Released at 09/20/2006 18:15 by Minnie Mahoney R.N. documented in this encounter Plan of Treatment Not on filedocumented as of this encounter Visit Diagnoses Not on filedocumented in this encounter
== END 2021-09-26 11:51 | disposition home or self-care (01) ==
LOC: LBN 11:50
PROVIDERS: PCP Internal Medicine; Visit Provider Otolaryngology
DX: R22.1 Localized swelling, mass and lump, neck (principal)
CPT/HCPCS: 88104

== ENCOUNTER 2021-09-26 12:23 | Outpatient (REF) | payer MEDICARE, SELFPAY | END 2021-09-26 12:24 | disposition home or self-care (01) | LOC: LBO 12:23 | PROVIDERS: PCP Internal Medicine; Visit Provider Internal Medicine ==

== ENCOUNTER 2022-07-30 13:27 | Outpatient (CLI) | payer MEDICARE, SELFPAY ==
--- NOTE | 2022-07-30 13:15 | DI.RAD_ITS ---
Exam(s) XR SHOULDER LT COMPLETE 2+V EXAM: XR SHOULDER LT COMPLETE 2+V CLINICAL HISTORY: CLAVICLE PAIN, M89.8x8. TECHNIQUE: 2D digital imaging was performed. COMPARISON: No exams were available for comparison FINDINGS: Five views No evidence of fracture nor dislocation nor abnormal soft tissue calcifications. Subacromial space e xhibits normal height. No obvious degenerative changes in the glenohumeral and AC joints. Ipsilater al clavicle appears unremarkable. IMPRESSION: No significant osseous findings. DATA REPOSITORY: RADIATION DOSE DELIVERED:
--- NOTE | 2022-07-30 13:15 | DI.RAD_ITS ---
Exam(s) XR CLAVICLE LT EXAM: XR CLAVICLE LT CLINICAL HISTORY: CLAVICLE PAIN, M89.8x8. TECHNIQUE: 2D digital imaging was performed. COMPARISON: No exams were available for comparison FINDINGS: Two views No evidence of fracture of the left clavicle. AC joint appears unremarkable. Bone density normal. No osseous lesions. IMPRESSION: No significant radiographic findings in the left clavicle. DATA REPOSITORY: RADIATION DOSE DELIVERED:
== END 2022-07-30 13:47 ==
LOC: DI 13:27
PROVIDERS: PCP Nurse Practitioner Family; Visit Provider Nurse Practitioner Family
DX: M25.511 Pain in right shoulder (principal); M89.8X8 Other specified disorders of bone, other site
CPT/HCPCS: 73000; 73030

== ENCOUNTER 2023-02-21 10:24 | Outpatient (REF) | payer MEDICARE, SELFPAY ==
--- NOTE | 2023-02-21 10:00 | SKI_PTH ---
PATIENT: Margarita Palomares LOC: NCN #:[id number] AGE/SX: 82/F ROOM: RE02/21/[address]: Mily Alas : 1940 BED: DIS: 02/21/2023 SPEC #: [id number] RECD: 02/21/23 17:03 STATUS: CEDRIC REQ #: [id number] TRI: 02/21/23 10:[address]: Mily Alas DEPT: Surgical Specimen RECD BY: Denia Mallory Tissues: 1 - SKIN BIOPSY(SHAVE/PUNCH) Procedures: SKIN LEVEL 4 Comments: [id number]
== END 2023-02-21 10:25 | disposition home or self-care (01) ==
LOC: NCHCN 10:24
PROVIDERS: PCP Nurse Practitioner Family; Visit Provider Nurse Practitioner Family
DX: R82.998 Other abnormal findings in urine (principal); I10 Essential (primary) hypertension; R39.89 Other symptoms and signs involving the genitourinary system
CPT/HCPCS: 87077; 87086; 87186; 88305